=== PATIENT | female | born 1985 | race Two or more races ===

== ENCOUNTER 2018-04-05 09:18 | Emergency (ER) | payer SELFPAY ==
[~2018-04-05] VITALS: Ht 172.7 cm; Wt 131.5 kg
[~2018-04-05 09:18] MED LIST: CARI250T PO; CIPR500T94 PO; HYDR-963 PO; HYDR-971 PO; METH-37 PO; MULT-246 PO
[2018-04-05 09:55] VITALS: BP 114/88
[2018-04-05] MEDS ORDERED: KETOROLAC 60 MG/2 ML INJ. IM ONE (11:30)
[2018-04-05] MEDS ORDERED: HYDROcodone/APAP 5/325MG 1 TAB TABLET PO ONE (11:30)
[2018-04-05] MEDS ORDERED: HYDR-971 PO (12:11)
--- NOTE | 2018-04-05 12:12 | PHYS DOC ---
Past Medical History Past Medical History: Depression Additional Past Medical Histor: chronic back pain, thyroid disease Past Surgical History: Tubal ligation Additional Past Surgical Histo: breast enlargement, L knee I&D Alcohol Use: None Drug Use: Marijuana Adult General Chief Complaint Chief Complaint: HIP PAIN [facility] HPI Patient is a 32 year old [f__sex] who presents with [] Review of Systems Review of Systems Constitutional: Denies fever or chills [] Eyes: Denies change in visual acuity, redness, or eye pain [] HENT: Denies nasal congestion or sore throat [] Respiratory: Denies cough or shortness of breath [] Cardiovascular: No additional information not addressed in HPI [] GI: Denies abdominal pain, nausea, vomiting, bloody stools or diarrhea [] : Denies dysuria or hematuria [] Musculoskeletal: Denies back pain or joint pain [] Integument: Denies rash or skin lesions [] Neurologic: Denies headache, focal weakness or sensory changes [] Endocrine: Denies polyuria or polydipsia [] All other systems were reviewed and found to be within normal limits, except as documented in this note. Current Medications Current Medications Current Medications Medications (Trade) Dose Ordered Sig/Venu Start Time Stop Time Status Last Admin Dose Admin Acetaminophen/ Hydrocodone Bitart (Lortab 5/325) 1 tab 1X ONCE 04/05/18 11:30 04/05/18 11:31 DC 04/05/18 11:52 1 TAB Ketorolac Tromethamine (Toradol Im) 60 mg 1X ONCE 04/05/18 11:30 04/05/18 11:31 DC 04/05/18 11:52 60 MG Allergies Allergies Allergies Coded Allergies Type Severity Reaction Last Updated Verified nitrofurantoin Allergy Unknown 02/03/16 Yes Physical Exam Physical Exam Constitutional: Well developed, well nourished, no acute distress, non-toxic appearance. [] HENT: Normocephalic, atraumatic, bilateral external ears normal, oropharynx moist, no oral exudates, nose normal. [] Eyes: PERRLA, EOMI, conjunctiva normal, no discharge. [] Neck: Normal range of motion, no tenderness, supple, no stridor. [] Cardiovascular:Heart rate regular rhythm, no murmur [] Lungs & Thorax: Bilateral breath sounds clear to auscultation [] Abdomen: Bowel sounds normal, soft, no tenderness, no masses, no pulsatile masses. [] Skin: Warm, dry, no erythema, no rash. [] Back: No tenderness, no CVA tenderness. [] Extremities: No tenderness, no cyanosis, no clubbing, ROM intact, no edema. [] Neurologic: Alert and oriented X 3, normal motor function, normal sensory function, no focal deficits noted. [] Psychologic: Affect normal, judgement normal, mood normal. [] Current Patient Data Vital Signs Vital Signs Date Time Temp Pulse Resp B/P (MAP) Pulse Ox O2 Delivery O2 Flow Rate FiO2 04/05/18 09:55 97.7 82 18 114/88 (97) 99 Room Air 97.7 EKG EKG [] Radiology/Procedures Radiology/Procedures [] Course & Med Decision Making Course & Med Decision Making Pertinent Labs and Imaging studies reviewed. (See chart for details) [] Dragon Disclaimer Dragon Disclaimer This electronic medical record was generated, in whole or in part, using a voice recognition dictation system. Departure Departure Impression: Primary Impression: Hip pain Disposition: 01 HOME, SELF-CARE Condition: STABLE Referrals: NO PCP (PCP) Patient Instructions: Hip Pain Additional Instructions: Take the medication as directed. Do not drive or operate heavy machinery while taking this medication. Follow-up with your orthopedic surgeon for your regular checks. If worsening return to the emergency department. Scripts Hydrocodone/Apap 5-325 (NORCO 5-325 TABLET) 1 Each Tablet 1 TAB PO PRN Q6HRS PRN for PAIN, #10 TAB 0 Refills Prov: ALEA TAMEZ APRN 04/05/18 ALEA TAMEZ APRN Apr 05, 2018 12:12
== END 2018-04-05 12:18 | disposition home or self-care (01) ==
LOC: ER 09:18
DX: M25.551 Pain in right hip (principal); G89.29 Other chronic pain; F32.9 Major depressive disorder, single episode, unspecified; Z88.8 Allergy status to other drugs, medicaments and biological substances
CPT/HCPCS: 96372; 99283; J1885